=== PATIENT | female | born 1965 | race Caucasian/White ===

== ENCOUNTER 2018-10-15 07:48 | Day surgery (SDC) | payer BC ==
[~2018-10-15] VITALS: Ht 167.6 cm; Wt 63.6 kg
[2018-10-15] VITALS (14 sets, daily range): BP systolic 109–143; BP diastolic 60–75; PULSE 71–92; RESP 11–28; Ht 167.6 cm; Wt 63.6 kg
--- NOTE | 2018-10-15 07:29 | HP ---
DATE OF ADMISSION: 10/15/2018 HISTORY OF PRESENT ILLNESS: This is a 53-year-old female patient seen on May 19 with a long histor y of nasal sinus congestion and recurrent infection. The patient was treated with multiple courses o f antibiotics, Singulair and Flonase without relief. There is a history of migraine and negative all ergy testing. A CAT scan of the sinuses were taken for further evaluation demonstrating sinonasal po lyposis, septal deviation, turbinate hypertrophy. The patient now admitted to the hospital for corre ctive sinus surgery. ALLERGIES: NONE. DAILY MEDICATIONS, MEDICAL CONDITIONS, CLOTTING DISORDERS, FAMILY HISTORY, REVIEW OF SYSTEMS: Negati ve. PAST SURGICAL HISTORY: Breast augmentation. HABITS: Alcohol: Social. Tobacco: None. Recreational drugs: Social. PHYSICAL EXAMINATION: GENERAL: The patient in no acute distress. HEAD: Normocephalic. No masses or deformities. EARS: Worse septal deviation polyposis noted. Oropharynx clear. NECK: No masses or adenopathy. CHEST: Clear to P and A. HEART: Regular sinus rhythm without murmur. ABDOMEN: Soft, bowel sounds normal. No masses or megaly. EXTREMITIES: Full range of motion without deformity. NEUROLOGIC: Physiologic. PELVIC AND RECTAL: Not done. IMPRESSION: Chronic tonsillitis with septal deviation and turbinate hypertrophy. RECOMMENDATIONS: Admit for surgery. Dictated By: DANIEL ROSSI/ABHILASH Conf#: [id number] DID#: [id number]
[~2018-10-15 07:48] MED LIST: AMOX500C2 PO
--- NOTE | 2018-10-15 10:09 | PREAC ---
Date/Time of Note Date/Time of Note DATE: 10/15/18 TIME: 10:07 Anesthesia Eval and Record Evaluation Time Pre-Procedure Interview DATE: 10/15/18 TIME: 10:07 Age 53 Sex female NPO: 8 hrs Preoperative diagnosis Nasal Polyps, deviated septum, turbinate hypertrophy Planned procedure Nasal Endoscopy, Turbinate reduction, septoplasty, polypectomy Past Medical History Past Medical History: None Surgery & Anesthesia Issues No known issue Meds Anticoagulation: No Beta Vladislav within 24 hr: No Reason Beta Vladislav not given: Pt. not on B-Vladislav Reported Medications Amoxicillin* (Amoxicillin*) 500 Mg Cap, 500 MG PO BID, #20 CAP STARTED 10-08-18 FOR 7 DAYS 10/15/18 Meds reviewed: Yes Allergies Coded Allergies: No Known Allergy (Unverified , 10/15/18) Allergies Reviewed: Yes Labs/Studies Labs Reviewed: Reviewed by anesthesiologist test: Negative Pre-procedure Exam Last vitals Vital Signs Date Temp Pulse Resp B/P (MAP) Pulse Ox O2 O2 Flow FiO2 Time Delivery Rate 10/15/18 97.5 78 16 142/75 100 Room Air 09:24 (97) Airway: Adequate mouth opening, Adequate thyromental dist Mallampati: Mallampati I Teeth: Normal Lung: Normal Heart: Normal ASA Physical Status ASA physical status: 1 Emergency: None Planned Anesthetic General/MAC: ETT Pre-operative Attestations Prior to commencing anesthesia and surgery, the patient was re-evaluated, there was verification of: *The patient's identity *The results of appropriate recent lab work and preoperative vital signs *The above evaluation not changing prior to induction *Anesthetic plan, risk benefits, alternative and complications discussed with patient/family; questions answered; patient/family understands, accepts and wishes to proceed. CUONG AMADOR MD Oct 15, 2018 10:09
[2018-10-15] MEDS ORDERED: MIDAZOLAM 1 MG/ML 2 ML INJ ONE (11:05)
[2018-10-15] MEDS ORDERED: PROPOFOL 20 ML ONE (11:05)
[2018-10-15] MEDS ORDERED: LIDOCAINE 2% (SDV) 5 ML INJ ONE (11:05)
[2018-10-15] MEDS ORDERED: FENTAnyl 50 MCG/ML VIAL ONE ×2 (11:05→12:19)
[2018-10-15] MEDS ORDERED: ONDANSETRON 4 MG INJ ONE (11:06)
[2018-10-15] MEDS ORDERED: CEFAZOLIN 1 GM INJ ONE ×2 (11:06→11:07)
[2018-10-15] MEDS ORDERED: BACITRACIN/POLYMYXIN 28.35 GM OINT TOP ONE (11:06)
[2018-10-15] MEDS ORDERED: DEXAMETHASONE 4 MG/ML 5 ML INJ ONE (11:06)
[2018-10-15] MEDS ORDERED: COCAINE 4% 4 ML TOP ONE (11:06)
[2018-10-15] MEDS ORDERED: LIDOCAINE 1%/EPI (1:100,000) (MDV) 20 ML ONE (11:06)
[2018-10-15] MEDS ORDERED: SUCCINYLCHOLINE CHLORIDE 100 MG/5 ML SYG IV ONE (11:07)
[2018-10-15] MEDS ORDERED: MEPERIDINE 25 MG INJ IV PRN (12:00)
[2018-10-15] MEDS ORDERED: HYDROmorphONE 1 MG/5 ML IV SYRINGE IV PRN (12:00)
[2018-10-15] MEDS ORDERED: ONDANSETRON 4 MG INJ IV PRN (12:00)
--- NOTE | 2018-10-15 12:56 | SIPON ---
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
--- NOTE | 2018-10-15 12:57 | PAC ---
Date/Time of Note Date/Time of Note DATE: 10/15/18 TIME: 12:57 Post-Anesthesia Notes Post-Anesthesia Note Last documented vital signs Vital Signs Date Temp Pulse Resp B/P (MAP) Pulse Ox O2 O2 Flow FiO2 Time Delivery Rate 10/15/18 90 16 132/68 96 Room Air 12:53 (89) 10/15/18 98.5 12:40 Activity: WNL Respiratory function: WNL Cardiovascular function: WNL Mental status: Baseline Pain reasonably controlled: Yes Hydration appropriate: Yes Nausea/Vomiting absent: Yes CUONG AMADOR MD Oct 15, 2018 12:57
[2018-10-15] MEDS: HYDROmorphONE 1 MG/5 ML IV SYRINGE IV PRN ×3 (12:58→13:16)
[2018-10-15] MEDS ORDERED: OXYCODONE/ACETAMINOPHEN (5/325) TAB PO PRN ×2 (14:00)
--- NOTE | 2018-10-16 13:40 | OPR ---
DATE OF OPERATION: 10/15/2018 PREOPERATIVE DIAGNOSES: 1. Chronic sinusitis. 2. Septal deviation. 3. Turbinate hypertrophy. 4. Polyposis. POSTOPERATIVE DIAGNOSIS: 1. Chronic sinusitis. 2. Septal deviation. 3. Turbinate hypertrophy. 4. Polyposis. PROCEDURE PERFORMED: Septoplasty, turbinate reduction, endoscopic sinus surgery, bilateral anterior and posterior ethmoid sinuses, bilateral maxillary sinuses, bilateral frontal sinuses, left sphenoid sinus, polypectomy turbinate reduction. DESCRIPTION OF PROCEDURE: The patient was brought to the operating room under parenteral sedation, g eneral oral endotracheal anesthesia with the patient in the supine position, sterile sheets and drape s applied. Nose anesthetized topically with 5% cottonoid cocaine and injectable Xylocaine, 1% epinep hrine 1:100,000. The nose was examined at this time. Left hemitransfixion incision was made. Septa l flaps elevated bilaterally exposing the quadrilateral cartilage. This was detached from the crest of the premaxilla. Strips of cartilage removed and vertical through and through cuts made in the car tilage to correct cartilaginous obstruction. The septal compartment was suctioned. The incision ely sed with interrupted 4-0 chromic. The inferior turbinate bones were then lightly crushed and outfrac tured. Then, polypectomy was performed bilaterally with snare and Brennan forceps. Following this , the left middle turbinate was medialized. The uncinate process was removed and an anterior and pos terior ethmoidectomy was performed with removal of polyps throughout. The ostium of the left maxilla ry sinus was opened with back biting and 4 biting forceps as well as the ostium of the frontal sinus and sphenoid sinus. A similar procedure was then performed on the right side with removal of the unc inate process anterior, posterior ethmoidectomy using upbiting and straight biting forceps. The osti um of the right maxillary sinus was enlarged as well as the frontal sinus. The operative field was s uctioned. The sinus cavities were packed with Nasopore, bacitracin ointment, impregnated sponge. A drip pad was applied and the patient was awakened and extubated and returned to recovery in excellent condition. ESTIMATED BLOOD LOSS: 5 to 10 mL. COMPLICATIONS: None. Dictated By: DANIEL ROSSI/ABHILASH Conf#: [id number] [facility]#: [id number]
== END 2018-10-15 14:37 | disposition home or self-care (01) ==
LOC: SDS 07:48
PROVIDERS: ATTEND Otolaryngology Otolaryngology/Facial Plastic Surgery
DX: J34.2 Deviated nasal septum (principal); J34.3 Hypertrophy of nasal turbinates; J32.8 Other chronic sinusitis
CPT/HCPCS: 30140; 30520; 88304; J0690; J1100; J1170; J2250; J2405; J3010; Z7512; Z7610